=== PATIENT | female | born 1985 | race Caucasian/White ===

== ENCOUNTER 2017-09-02 13:04 | Inpatient (IN) | payer OTHER ==
[~2017-09-02] VITALS: Ht 165.1 cm; Wt 88.4 kg
[2017-09-02] VITALS (8 sets, daily range): BP systolic 103–122; BP diastolic 55–71; PULSE 74–82; TEMP 97.3–99.5
[2017-09-02] MEDS ORDERED: YAZ 28 3 MG-0.01 TAB PO (13:14)
[2017-09-02 14:12] LABS: COLLECTION METHOD CLEAN CATCH
[2017-09-02 14:19] LABS: BASO # 0.1 (0.0-0.2); BASO % 0.3 % (0.0-2.0); EOS # 0.2 (0.0-0.7); EOS % 1.3 % (0-4.0); GRAN # 12.8 (1.4-6.5); GRAN % 84.5 % (42.2-75.2); HEMATOCRIT 41.7 % (37.0-47.0); LYMPH # 1.1 (1.2-3.4); LYMPH % 7.1 % (20.0-51.0); MEAN CELL VOLUME 87 fl (80.0-100.0); MEAN CORPUSCULAR HEMOGLOBIN 29 pg (27.0-31.0); MEAN CORPUSCULAR HGB CONC 34 g/dl (33.0-37.0); MEAN PLATELET VOLUME 9.8 fl (7.4-10.4); MONO % 6.4 % (1.7-9.3); PLATELET COUNT 249 K/mm3 (130-400); REDCELL DISTRIBUTION WIDTH-CV 12.1 % (11.5-14.5)
[2017-09-02 14:33] LABS: ALBUMIN 4.2 gm/dL (3.5-5.0); BILIRUBIN,TOTAL 0.4 mg/dL (0.0-1.0); CALCIUM 9.1 mg/dL (8.4-10.2); CREATININE, serum 0.67 mg/dL (0.52-1.25); POTASSIUM 3.9 mmol/L (3.4-5.0); TOTAL PROTEIN 7.4 gm/dL (6.4-8.2)
[2017-09-02 15:03] LABS: PH 5 (5-8); URINE APPEARANCE Hazy; URINE BILIRUBIN Negative (NEGATIVE); URINE BLOOD Negative (NEGATIVE); URINE COLOR Amber; URINE GLUCOSE Negative (NEGATIVE); URINE KETONE Negative (NEGATIVE); URINE LEUKOCYTE ESTERASE Negative (NEGATIVE); URINE NITRATE Negative (NEGATIVE); URINE PROTEIN(semi-quant) Negative (NEGATIVE); URINE UROBILINOGEN Negative (NEGATIVE)
[2017-09-02 15:06] LABS: MUCOUS Present /lpf; SQUAMOUS EPITHELIAL 0-2 /hpf; URINE BACTERIA None Seen /hpf; URINE RBC 0-2 /hpf
[2017-09-03] VITALS (7 sets, daily range): BP systolic 98–119; BP diastolic 54–69; PULSE 64–74; TEMP 97.2–98.8
[2017-09-04 06:25] VITALS: BP 100/70; PULSE 81; TEMP 98.2
[2017-09-04 09:55] VITALS: BP 108/56; PULSE 64; TEMP 98.1
[2017-09-04 14:38] VITALS: BP 111/67; PULSE 65; TEMP 98.2
[2017-09-04 17:34] VITALS: BP 103/65; PULSE 97; TEMP 98.7
[2017-09-04 18:26] VITALS: BP 115/63; PULSE 70; TEMP 97.7
[2017-09-04 21:15] VITALS: BP 113/59; PULSE 62; TEMP 97.7
[2017-09-05 05:09] VITALS: BP 113/61; PULSE 67; TEMP 98.4
[2017-09-05 09:28] VITALS: BP 114/60; PULSE 85; TEMP 98.5
[2017-09-05 13:12] VITALS: BP 107/52; PULSE 65; TEMP 98.7
== END 2017-09-05 18:00 | disposition home or self-care (01) | DRG 343 ==
LOC: COL.ER 13:04 → SURG 15:15
PROVIDERS: Emergency Medicine; Surgery
PROC: 0DTJ4ZZ Resection of Appendix, Percutaneous Endoscopic Approach (ICD-10-PCS; principal; 2017-09-02 19:00)
DX: K35.80 Unspecified acute appendicitis (principal); N73.9 Female pelvic inflammatory disease, unspecified
CPT/HCPCS: A9284; J0171; J1100; J1170; J1335; J1885; J2405; J2704; J2765; J3010; J7030; J7050; Q9967